=== PATIENT | male | born 1965 | race African-American/Black ===

== ENCOUNTER 2018-04-21 11:42 | Emergency (ER) | payer OTHER ==
[2018-04-21 11:47] VITALS: BMI 38.7
--- NOTE | 2018-04-21 11:54 | PDOC ---
History of Present Illness - General Chief Complaint: Nausea/Vomiting Stated Complaint: N/V/D Time Seen by Provider: 04/21/18 11:54 - History of Present Illness Initial Comments: 04/21/18 14:25 Chief complaint: Nausea, vomiting, diarrhea this morning History of present illness: Patient had several episodes of vomiting clear fluid , no blood noted. Also several episodes of watery diarrhea, no blood noted. Mild crampy abdominal pain with the diarrhea, but no persistent pain in no pain at present. Review of systems: Denies fever/chills, hematemesis, melena, bloody stool, chest pain, shortness of breath, abdominal pain, visual or focal neurologic symptoms, urinary tract symptoms. Remainder systems reviewed and found negative Past medical history: Mild asthma maintained on albuterol inhaler. No recent exacerbations. Otherwise healthy. Social history: Works as a teacher and [employer], denies tobacco alcohol or nonprescription drugs Family history: Reviewed and noncontributory Physical exam: Alert and oriented well-developed well-nourished no acute distress cheerful and cooperative Low-grade fever, mildly elevated blood pressure. Mild tachycardia. Respiratory rate and oxygen saturation are normal PERRLA, fundi benign, ENT clear Neck supple without bruit mass or nodes Chest clear to P&A, full breath sounds throughout bilaterally, no wheezes rales or rhonchi CV S1 and S2 normal without murmur rub or gallop pulses full and symmetric no JVD or edema no bruits Abdomen nondistended. Bowel sounds normal. Soft without mass tenderness organomegaly Neurological intact Skin clear, no rash, adequate turgor and wet mucous membranes Extremities no CCE Impression: Viral gastroenteritis, probably acquired at school. 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 Hydration appears adequate. Plan: CBC and chemistries, intravenous fluids, antiemetic, and antidiarrheal, and Motrin. Further evaluation depending on results. Past History - Past Medical History Allergies/Adverse Reactions: Allergies Allergy/AdvReac Type Severity Reaction Status Date / Time No Known Allergies Allergy Verified 04/21/18 11:43 Home Medications: Ambulatory Orders Albuterol Sulfate Inhaler - [Ventolin HFA Inhaler -] 1 - 2 inh PO Q4H PRN #0 inh 02/17/14 Ondansetron [Zofran Odt -] 4 mg SL TID PRN #10 od.tablet 04/21/18 Asthma: Yes COPD: No - Surgical History Orthopedic Surgery: Yes (TORN PCL, ACL LEFT AND ACL MCL ON RIGHT) - Suicide/Smoking/Psychosocial Hx Smoking History: Never smoked Have you smoked in the past 12 months: No Information on smoking cessation initiated: No Hx Alcohol Use: No Drug/Substance Use Hx: No Substance Use Type: None Hx Substance Use Treatment: No *Physical Exam - Vital Signs Last Vital Signs Temp Pulse Resp BP Pulse Ox 100.3 F H 103 H 20 156/106 H 96 04/21/18 11:43 04/21/18 11:43 04/21/18 11:43 04/21/18 11:43 04/21/18 11:43 Moderate Sedation - Procedure Monitoring Vital Signs: Procedure Monitoring Vital Signs Temperature 100.3 F H 04/21/18 11:43 Pulse Rate 103 H 04/21/18 11:43 Respiratory Rate 20 04/21/18 11:43 Blood Pressure 156/106 H 04/21/18 11:43 O2 Sat by Pulse Oximetry (%) 96 04/21/18 11:43 ED Treatment Course - LABORATORY CBC & Chemistry Diagram: 04/21/18 12:15 04/21/18 12:15 Medical Decision Making - Medical Decision Making 04/21/18 14:30 CBC, chemistries without significant abnormalities. No further vomiting or diarrhea. Nausea is improved. 04/21/18 14:50 Blood pressure has improved as well Fully ambulatory, in no pain or other distress upon discharge to follow-up as directed. *DC/Admit/Observation/Transfer Diagnosis at time of Disposition: Viral gastroenteritis - Discharge Dispostion Disposition: HOME Condition at time of disposition: Improved Decision to Admit order: No - Prescriptions Prescriptions: Ondansetron [Zofran Odt -] 4 mg SL TID PRN #10 od.tablet PRN Reason: Nausea And/Or Vomiting - Referrals - Patient Instructions Printed Discharge Instructions: DI for Diarrhea and Traveler's Diarrhea -- Adult, DI for Nausea -- Adult, DI for Vomiting -- Adult Additional Instructions: Rest, drink lots of fluids, take Tylenol for body ache, Imodium for diarrhea, and prescribed nausea medication if needed. Return to ER if symptoms are worse. Otherwise follow-up with primary physician in 2-3 days. - Post Discharge Activity Forms/Work/School Notes: Back to Work
[2018-04-21] MEDS ORDERED: ONDANSETRON 4 MG/2 ML VIAL IVPB ONE (11:55)
[2018-04-21] MEDS ORDERED: SODIUM CHLORIDE 1,000 ML IV STA ×2 (11:55→13:53)
[2018-04-21] MEDS ORDERED: LOPERAMIDE HCL 1 MG/5 ML UNIT DOSE CUP PO ONE (11:55)
[2018-04-21] MEDS ORDERED: LOPERAMIDE HCL 2 MG CAPSULE ONE (12:14)
[2018-04-21] MEDS ORDERED: ONDANSETRON 4 MG/2 ML VIAL ONE (12:14)
[2018-04-21] MEDS ORDERED: ACETAMINOPHEN INJECTION 100 ML IVPB ONE (12:17)
[2018-04-21 12:20] LABS: BASO % 0.2 % (0-2.0); EOS % 4.2 % (0-4.5); HEMATOCRIT 43.7 % (35.4-49); HEMOGLOBIN 14.1 GM/dl (11.7-16.9); LYMPH % 4.2 % (8-40); MCH 28.4 pg (25.7-33.7); MCHC 32.3 g/dl (32.0-35.9); MEAN CELL VOLUME 87.6 fl (80-96); MEAN PLT VOLUME 7.5 fl (7.5-11.1); MONO % 4.6 % (3.8-10.2); NEUT % 86.8 % (42.8-82.8); PLATELET COUNT 354 K/MM3 (134-434); RBC 4.98 M/mm3 (4.00-5.60); WHITE BLOOD COUNT 9.7 K/mm3 (4.0-10.8)
[2018-04-21] MEDS ORDERED: ACETAMINOPHEN 1000 MG/100 ML VIAL (NON FORMULARY) IVPB ONE (12:26)
[2018-04-21 12:33] LABS: ALBUMIN 4.1 g/dl (3.5-5.0); ALK PHOS 62 U/L (32-92); ANION GAP 8 MMOL/L (8-16); BILIRUBIN,TOTAL 0.6 mg/dl (0.2-1.0); BLOOD UREA NITROGEN 13 mg/dl (7-18); CALCIUM 9.2 mg/dl (8.4-10.2); CHLORIDE 102 mmol/L (98-107); CO2 25 mmol/L (22-28); GLUCOSE,RANDOM 114 mg/dl (74-106); POTASSIUM 4.6 mmol/L (3.5-5.1); SGOT/AST 25 U/L (10-42); SGPT/ALT 15 U/L (10-40); SODIUM 135 mmol/L (136-145); TOT PROT 7.6 g/dl (6.4-8.3)
[2018-04-21 14:58] VITALS: BP 154/97; PULSE 92; TEMP 99.6
== END 2018-04-21 15:30 | disposition home or self-care (01) ==
LOC: FER 11:42
PROC: 3E033NZ Introduction of Analgesics, Hypnotics, Sedatives into Peripheral Vein, Percutaneous Approach (ICD-10-PCS; principal; 2018-04-21)
PROC: 3E033GC Introduction of Other Therapeutic Substance into Peripheral Vein, Percutaneous Approach (ICD-10-PCS; 2018-04-21)
PROC: 3E0337Z Introduction of Electrolytic and Water Balance Substance into Peripheral Vein, Percutaneous Approach (ICD-10-PCS; 2018-04-21)
DX: K52.9 Noninfective gastroenteritis and colitis, unspecified (principal); B97.89 Other viral agents as the cause of diseases classified elsewhere
CPT/HCPCS: 36415; 80053; 85025; 99282-25; J0131; J7030